=== PATIENT | male | born 2000 | race Caucasian/White ===

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

== ENCOUNTER 2023-01-20 19:04 | Emergency (ER) | payer MEDICAID, OTHER ==
[~2023-01-20] VITALS: Ht 182.9 cm; Wt 75.0 kg
[2023-01-20 19:16] VITALS: O2SAT 98
[2023-01-20] MEDS ORDERED: TOPIRAMATE 25MG TABLET PO SCH (19:45)
[2023-01-20] MEDS ORDERED: LEVETIRACETAM 500MG/5ML CUP PO SCH (19:45)
[2023-01-20] MEDS ORDERED: CARBAMAZEPINE 100MG TABLET CHEW PO ONE (19:45)
[2023-01-20] MEDS ORDERED: CLONAZEPAM 1MG TABLET PO ONE (19:45)
[2023-01-20] MEDS ORDERED: CARB300C9 MT (22:55)
[2023-01-20] MEDS ORDERED: CLON1TAB23 MT (22:55)
[2023-01-20] MEDS ORDERED: ARIP5TAB58 MT (22:55)
[2023-01-20] MEDS ORDERED: TOPA25 MT (22:55)
[2023-01-20] MEDS ORDERED: CENO200T PO (22:55)
[2023-01-21 08:57] VITALS: BP 130/81; PULSE 70; RESP 16; TEMP 98
[2023-01-21] MEDS ORDERED: LEVETIRACETAM 500MG/5ML CUP PO SCH (09:00)
[2023-01-21] MEDS ORDERED: LEVETIRACETAM 500MG TABLET PO SCH (09:00)
[2023-01-21] MEDS ORDERED: LEVETIRACETAM 1000MG PREMIX 100 ML IV ONE (09:00)
== END 2023-01-21 08:59 | disposition home or self-care (01) ==
LOC: ER 19:04
DX: G40.909 Epilepsy, unspecified, not intractable, without status epilepticus (principal)
CPT/HCPCS: 99284